=== PATIENT | female | born 1985 | race Caucasian/White ===

== ENCOUNTER 2020-10-10 03:51 | Outpatient (CLI) | payer OTHER ==
[2020-10-10] VITALS (33 sets, daily range): BP systolic 84–125; BP diastolic 50–82
[~2020-10-10] VITALS: Ht 170.2 cm; Wt 90.5 kg
[2020-10-10] MEDS: LR 1,000 ML IV SCH ×2 (04:40→16:35)
[2020-10-10] MEDS: MAG Sulf (OBGYN) 20GM/500ML 20,000 MG in IV 1 EA IV SCH ×3 (04:40→23:52)
[2020-10-10 05:15] LABS: HEMATOCRIT 36.5 % (36.0-47.0); HEMOGLOBIN 12.2 g/dl (12.0-15.5); MEAN CORPUSCULAR HEMOGLOBIN 29.7 pg (27.0-33.0); MEAN CORPUSCULAR HGB CONC 33.4 g/dl (32.0-36.5); MEAN CORPUSCULAR VOLUME 88.8 fl (80.0-96.0); PLATELET COUNT, AUTOMATED 141 10^3/uL (150-450); RED BLOOD COUNT 4.11 10^6/uL (4.00-5.40); WHITE BLOOD COUNT 9.3 10^3/uL (4.0-10.0)
[2020-10-10] MEDS ORDERED: BETAMETHASONE SOLUSPAN 6MG/ML 5ML VIAL (J0702 PER 3MG) IM ONE ×2 (05:15→12:28)
[2020-10-10] MEDS ORDERED: ZOFR4TAB16 PO (06:23)
[2020-10-10] MEDS ORDERED: PRENTAB9 PO (06:23)
[2020-10-10] MEDS ORDERED: ceFAZolin 2 GM/D5W 50 ML IV BAG (J0690 PER 500MG) As Ordered ONE (06:35)
--- NOTE | 2020-10-10 06:37 | REPVR ---
PROCEDURE INFORMATION: Exam: US After First Trimester, Transabdominal Exam date and time: 10/10/2020 5:36 AM Age: 34 years old Clinical indication: Lmp or gestational age (in weeks): 33w 3d; Other: R/O apruption; ; Additional info: Rule out abruption, gem, efw TECHNIQUE: Imaging protocol: Real-time transabdominal obstetrical ultrasound of the maternal pelvis and a second or third trimester with image documentation. COMPARISON: No relevant prior studies available. FINDINGS: Gestation: Single live intrauterine is seen. motion with identified. heart rate: heart rate is detected at 133 beats per minutes. presentation: Vertex presentation is noted. Placenta: Anterior grade 2 placenta is noted with no evidence of placenta previa or abruption. Amniotic fluid: Amniotic fluid is normal for gestational age. Amniotic fluid index: The amniotic fluid index is within normal limits measuring 16.2 centimetres. ANATOMY: kidneys: Limited evaluation of the kidneys appear grossly unremarkable. stomach: Limited evaluation of the stomach appear unremarkable. urinary bladder: Limited evaluation of the urinary bladder appear unremarkable. BIOMETRY: The biparietal diameter measures 8.99 cm corresponding to 36 weeks and 3 days gestation (more than 98 percentile). The head circumference measures 32.6 cm corresponding to 37 weeks gestation (94 percentile). The abdominal circumference measures 31.88 cm corresponding to 35 weeks and 6 days gestation (98 percentile). The femur length measures 6.83 cm corresponding to 35 weeks and 1 days gestation (84 percentile). Gestational age (AUA): 36 weeks and 1 days gestation. Estimated due date (AUA): November 06, 2020. Estimated weight: The estimated weight is 2772 g. Estimated weight percentile: 97 percentile. MATERNAL ANATOMY: Uterus: Not evaluated on this exam. Cervix: The cervix is normal length measuring 4.3 centimetres. The endocervical canal is closed. Right adnexa: Ovary is obscured by overlying bowel gas. Left adnexa: Ovary is obscured by overlying bowel gas. IMPRESSION: Single live IUP corresponding to 36 weeks and 1 days gestation with vertex presentation and anterior placenta with no gross sonographic evidence of abnormality and no evidence of placental abruption. Electronically signed by: Genaro Davidson On 10/10/2020 06:37:42 AM
[2020-10-10] MEDS ORDERED: OXYTOCIN 30 UNITS IN 0.9% NaCl 500ML IV BAG (J2590) As Ordered ONE (06:48)
[2020-10-10] MEDS ORDERED: KETOROLAC 60MG 2ML VIAL As Ordered ONE (06:48)
[2020-10-10] MEDS ORDERED: ONDANSETRON 4MG/2ML VIAL As Ordered ONE (06:48)
[2020-10-10] MEDS ORDERED: dexameTHASONE 4 MG/ML 1ML VIAL (J1100 PER 1MG) As Ordered ONE (06:48)
[2020-10-10] MEDS ORDERED: SUCCINYLCHOLINE 100 MG/5 ML SYRINGE (J0330) As Ordered ONE (06:57)
[2020-10-10] MEDS ORDERED: propofoL 200 MG/20 ML VIAL As Ordered ONE (06:57)
[2020-10-10] MEDS ORDERED: MORPHINE PRES-FREE INJ 10 MG/10 ML VIAL (J2274) As Ordered ONE (07:00)
[2020-10-10] MEDS ORDERED: BUTORPHANOL 2 MG/ML INJ (J0595) IV ONE (07:20)
[2020-10-10] MEDS ORDERED: PROMETHAZINE INJ 25 MG/ML VIAL (J2550) IV ONE (07:20)
[2020-10-10 08:59] LABS: HEMATOCRIT 37.1 % (36.0-47.0); HEMOGLOBIN 12.3 g/dl (12.0-15.5); MEAN CORPUSCULAR HEMOGLOBIN 29.7 pg (27.0-33.0); MEAN CORPUSCULAR HGB CONC 33.2 g/dl (32.0-36.5); MEAN CORPUSCULAR VOLUME 89.6 fl (80.0-96.0); PLATELET COUNT, AUTOMATED 151 10^3/uL (150-450); RED BLOOD COUNT 4.14 10^6/uL (4.00-5.40); WHITE BLOOD COUNT 9.4 10^3/uL (4.0-10.0)
[2020-10-10 09:18] LABS: ALBUMIN 2.9 GM/DL (3.2-5.2); ALT/SGPT 29 U/L (12-78); BILIRUBIN,TOTAL 0.4 MG/DL (0.2-1.0); BLOOD UREA NITROGEN 8 MG/DL (7-18); CALCIUM LEVEL 7.8 MG/DL (8.5-10.1); CARBON DIOXIDE LEVEL 22 MEQ/L (21-32); CHLORIDE LEVEL 109 MEQ/L (98-107); CREATININE FOR GFR 0.38 MG/DL (0.55-1.30); GLOMERULAR FILTRATION RATE > 60.0 (>60); GLUCOSE, FASTING 106 MG/DL (70-100); LDH LACTATE DEHYDROGENASE 158 U/L (84-246); POTASSIUM SERUM 3.8 MEQ/L (3.5-5.1); SODIUM LEVEL 137 MEQ/L (136-145); TOTAL PROTEIN 6.7 GM/DL (6.4-8.2)
[2020-10-10 09:33] LABS: INR 0.92; PROTHROMBIN TIME 12.6 SECONDS (12.5-14.3)
[2020-10-10 09:34] LABS: PARTIAL THROMBOPLASTIN TIME 24.3 SECONDS (24.2-38.5)
--- NOTE | 2020-10-10 11:05 | IPNPDOC ---
Obstetrical Progress Note Date of Service Oct 10, 2020 Subjective 34yo at 33+2 weeks, dated by LMP c/w first TM US (EDC: 11/26/20), who was transferred from [facility] out of concern for placental abruption, PTL. She presented with acute exacerbation/onset of lower abdominal pain / uterine pain, contractions. She has had no VB/spotting or LOF. +FM. She received an corticosteroid dose at 0028, was given Nifedipine for tocolysis and then placed on Magnesium Sulfate. An fFN was negative, and labs revealed no significant abnormality. Cervical exam revealed no evidence of advanced dilation. PMH: depression/anxiety, asthma, celiac disease SH: Appendectomy, cholecystectomy, D&C, EGD Meds: PNV, Ventolin HFA, Flovent HFA, Zofran All: acetaminophen? OBHx: G1, 2007: 36 weeks (baby w/ gastroschisis). G2, SAB. G3, 2010: 38 weeks . G4, EAB. G5, 2012: 38 weeks (baby w/ hypospadia). NETWORK ENGINEERING ADVISOR: h/o CT (treated), no other STI. Famhx: PGF colon CA. course: 1. Multiple triage / L&D visits (many for PTL concerns); received course of BMTZ at __ weeks O: Normotensive, mild Tachycardia 100-120bpm; O2 [id number]% on room air. Gen: A&Ox4 Heart: RRR no m/g/r Lungs: CTA b/l no w/c/r/r Abd: uterine tenderness/firm. no guarding or rebound tenderness, nondistended. Ext: no c/c/e SVE: 1cm, 25% effacement, -3 station, no bloody show. No abnormal discharge or foul odor. EFM: Cat I, reactive, normal baseline, moderate variability (periods of minimal variability), no decels. [place]: no decipherable labor contraction pattern; uterine irritability?. +artifact (due to pt movement/shifting positions) Labs: see below [facility] (no acute / abnormal findings) A/P: 34yo at 33+1 weeks. +abdominal pain, but no clear/compelling clinical evidence of acute placental abruption. Reassuring status. -IV pain control -cEFM/[place] -Repeat labs as indicated -Second dose of BMTZ at 1230 today -Continue with close observation. Omid Ro DO Objective Vital Signs Date Time Temp Pulse Resp B/P (MAP) Pulse Ox O2 Delivery O2 Flow Rate FiO2 10/10/20 09:07 114 110/58 (75) 10/10/20 08:38 126 121/73 (89) 10/10/20 08:37 129 10/10/20 08:22 134 10/10/20 08:07 130 106/69 (81) 10/10/20 07:36 126 102/64 (77) 10/10/20 07:33 18 10/10/20 06:06 98.2 93 20 119/82 (94) 10/10/20 03:58 97.8 85 20 115/72 (86) Laboratory Tests 10/10/20 04:23: Hepatitis B Surface Antigen NEGATIVEL 10/10/20 04:28: White Blood Count 9.3, Red Blood Count 4.11, Hemoglobin 12.2, Hematocrit 36.5, Mean Corpuscular Volume 88.8, Mean Corpuscular Hemoglobin 29.7, Mean Corpuscular Hemoglobin Concent 33.4, Red Cell Distribution Width 13.7, Platelet Count 141L, Nucleated Red Blood Cells % (auto) 0.0, Magnesium Level 2.0, Syphilis Serology [Pending] 10/10/20 08:00: Serology Scanned Report Hepatitis B Testing 10/10/20 08:40: White Blood Count 9.4, Red Blood Count 4.14, Hemoglobin 12.3, Hematocrit 37.1, Mean Corpuscular Volume 89.6, Mean Corpuscular Hemoglobin 29.7, Mean Corpuscular Hemoglobin Concent 33.2, Red Cell Distribution Width 13.7, Platelet Count 151, Nucleated Red Blood Cells % (auto) 0.0, Prothrombin Time 12.6, Prothromb Time International Ratio 0.92, Activated Partial Thromboplast Time 24.3L, Fibrinogen 441, Sodium Level 137, Potassium Level 3.8, Chloride Level 109H, Carbon Dioxide Level 22, Anion Gap 6L, Blood Urea Nitrogen 8, Creatinine 0.38L, Glomerular Filtration Rate > 60.0, Fasting Glucose 106H, Calcium Level 7.8L, Total Bilirubin 0.4, Aspartate Amino Transf (AST/SGOT) 19, Alanine Aminotransferase (ALT/SGPT) 29, Alkaline Phosphatase 103, Lactate Dehydrogenase 158, Total Protein 6.7, Albumin 2.9L, Albumin/Globulin Ratio 0.8L Current Medications Medications (Trade) Dose Ordered Sig/Trey Route PRN Reason Start Time Stop Time Status Last Admin Dose Admin Lactated Ringer's 1,000 ml @ 75 mls/hr [id number] IV 10/10/20 04:15 10/10/20 04:40 75 MLS/HR Magnesium Sulfate 42421 mg/IV Miscellaneous Supplies 500 ml @ 50 mls/hr Q10H IV 10/10/20 04:15 10/10/20 04:40 50 MLS/HR Laboratory Tests Test 10/10/20 04:28 10/10/20 08:40 Magnesium Level 2.0 MG/DL (1.8-2.4) Blood Urea Nitrogen 8 MG/DL (7-18) Creatinine 0.38 MG/DL (0.55-1.30) L Glomerular Filtration Rate > 60.0 (>60) Fasting Glucose 106 MG/DL (70-100) H Calcium Level 7.8 MG/DL (8.5-10.1) L Total Bilirubin 0.4 MG/DL (0.2-1.0) Aspartate Amino Transf (AST/SGOT) 19 U/L (7-37) Alanine Aminotransferase (ALT/SGPT) 29 U/L (12-78) Total Protein 6.7 GM/DL (6.4-8.2) Sodium Level 137 MEQ/L (136-145) Albumin 2.9 GM/DL (3.2-5.2) L Alkaline Phosphatase 103 U/L (45-117) Potassium Level 3.8 MEQ/L (3.5-5.1) Chloride Level 109 MEQ/L (98-107) H Carbon Dioxide Level 22 MEQ/L (21-32) Anion Gap 6 MEQ/L (8-16) L Laboratory Tests 10/10/20 04:28 10/10/20 08:40 Laboratory Tests 10/10/20 04:28 10/10/20 08:40 Vital Signs Date Time Temp Pulse Resp B/P (MAP) Pulse Ox O2 Delivery O2 Flow Rate FiO2 10/10/20 09:07 114 110/58 (75) 10/10/20 07:33 18 10/10/20 06:06 98.2 MIKE RO 21, 2021 11:05
[2020-10-10] MEDS ORDERED: MORPHINE 4 MG/ML 1ML VIAL/SYRINGE (J2270) IV ONE ×2 (13:50→19:25)
[2020-10-10] MEDS ORDERED: MORPHINE 4 MG/ML 1ML VIAL/SYRINGE (J2270) IV PRN (21:35)
[2020-10-10] MEDS ORDERED: diphenhydrAMINE 25MG CAP PO ONE (22:55)
[2020-10-11] VITALS (14 sets, daily range): BP systolic 77–102; BP diastolic 43–58
[2020-10-11 07:16] LABS: HEMATOCRIT 32.6 % (36.0-47.0); HEMOGLOBIN 10.7 g/dl (12.0-15.5); MEAN CORPUSCULAR HEMOGLOBIN 29.6 pg (27.0-33.0); MEAN CORPUSCULAR HGB CONC 32.8 g/dl (32.0-36.5); MEAN CORPUSCULAR VOLUME 90.1 fl (80.0-96.0); PLATELET COUNT, AUTOMATED 129 10^3/uL (150-450); RED BLOOD COUNT 3.62 10^6/uL (4.00-5.40); WHITE BLOOD COUNT 11.9 10^3/uL (4.0-10.0)
[2020-10-11 07:28] LABS: INR 0.96; PARTIAL THROMBOPLASTIN TIME 22.9 SECONDS (24.2-38.5)
[2020-10-11 07:39] LABS: ALBUMIN 2.4 GM/DL (3.2-5.2); ALT/SGPT 31 U/L (12-78); BILIRUBIN,TOTAL 0.3 MG/DL (0.2-1.0); BLOOD UREA NITROGEN 3 MG/DL (7-18); CALCIUM LEVEL 6.9 MG/DL (8.5-10.1); CARBON DIOXIDE LEVEL 22 MEQ/L (21-32); CHLORIDE LEVEL 107 MEQ/L (98-107); CREATININE FOR GFR 0.22 MG/DL (0.55-1.30); GLOMERULAR FILTRATION RATE > 60.0 (>60); GLUCOSE, FASTING 96 MG/DL (70-100); POTASSIUM SERUM 3.5 MEQ/L (3.5-5.1); SODIUM LEVEL 138 MEQ/L (136-145); TOTAL PROTEIN 5.1 GM/DL (6.4-8.2)
[2020-10-11] MEDS: LR 1,000 ML IV SCH (08:22)
--- NOTE | 2020-10-11 09:51 | HPE ---
HISTORY AND PHYSICAL DATE OF ADMISSION: 10/10/2020 HISTORY OF PRESENT ILLNESS: Indy is a 34-year-old female is 3, para 2-0-0-2, who was transferred here by an ambulance after being transferred from [facility] for labor. She was found to be 1 cm and dilating and she was sent here after receiving a bolus of magnesium sulfate, one dose of betamethasone. She had also received a dose of Procardia. She does have a history of prior contractions. Her fibronectin was negative. She is also found here to be shruti every minute to two with a questionable abruption. Her full record reviewed as well as report received from her transferring doc. The patient has a history of one at 36 weeks and another delivery at 37 weeks, first complicated by a fetus with gastroschisis. In the second , fetus had hypospadias. Her second was induced because of repeated contractions and feeling uncomfortable. Her full history reviewed. PAST MEDICAL HISTORY: Significant for anxiety, depression, celiac disease, anaphylactic reaction to Tylenol. She has a history of asthma and multiple meds. PAST SURGICAL HISTORY: She had a D&C for spontaneous AB and one elective termination. OBSTETRIC HISTORY: She is a 6, para 1-1-2-2. ALLERGIES: ACETAMINOPHEN, BEE VENOM. MEDICATIONS: 1. Albuterol. 2. Singulair. 3. She was receiving prednisone. 4. D-Vi-Marleen. PHYSICAL EXAMINATION: HEENT grossly within normal limits. The patient is in mild distress with complaints of severe contractions. Her abdomen is firm, appeared to be consistent with a possible abruption. Vaginal exam: Sterile speculum exam as well as a digital exam done, no evidence of bleeding. Her cervix is 1 cm thick and posterior. The bedside ultrasound shows no evidence of abruption. Fetus is approximately 6 lb, 6 oz. Normal appearing placenta. However, on clinical exam, she does appear to have clinical signs of abruption. Her uterus is firm and very little break in between contractions. Tracing remained a category 1 tracing at this point. LABORATORY DATA: Her repeat lab reviewed. H&H is 12/35. Her magnesium sulfate level is 2. ASSESSMENT: Intrauterine at 33 weeks gestation, status post first dose of steroid, being evaluated for possible labor. However, an abruption cannot be ruled out although ultrasound does not show any evidence of abruption. PLAN: We will continue to monitor this patient, continue her magnesium sulfate, ampicillin for GBS prophylaxis. The patient and her partner counseled extensively. Given the nature of her contractions and her clinical exam, it is my feeling that she is having abruption. We will monitor her for possible dilation. If for any reason the tracings change or the patient continues to be uncomfortable, we might have to do a stat section. The risks and benefits of the section discussed with the patient as well as need for intensive care admission for the baby.
--- NOTE | 2020-10-11 11:21 | IPNPDOC ---
Text Note Date of Service The patient was seen on 10/11/20. NOTE Subjective: Indy is a 34 year-old female who was transported from another facility via ambulance over their concern for a potential placental abruption. She was found to be stable, without bleeding, with normal abruption labs. After monitoring her, starting Mag on her and given a rescue dose of betamethasone she was found to have no change. She had no contractions on the EFM all night while she was sleeping. Objective: FHR: 120, moderate variability, positive accelerations, no decelerations. [place]: none General: Alert and oriented. No apparent distress. Respiratory: Regular rate without use of accessory muscles Abdomen: gravid, soft with no tenderness with palpation SCE: 1/thick, high, No bleeding with exam noted. No change in over 24+ hours. Assessment: IUP at 33.3 weeks gestation, not in labor, no abruption. Plan: After reviewing recent labs with Dr. Ro there was not noted to be any major changes that wasn't a result of hemodilution. Recommendation is to discharge from hospital. Reviewed findings with patient. Education done on kick count, labor signs, and danger signs to report. Discharged to home with her with precautions. VS,Fishbone, I+O VS, Fishbone, I+O Laboratory Tests 10/11/20 06:55 10/11/20 06:56 Vital Signs Date Time Temp Pulse Resp B/P (MAP) Pulse Ox O2 Delivery O2 Flow Rate FiO2 10/11/20 08:20 97.9 10/11/20 07:57 82 18 87/48 (61) 10/10/20 14:09 Room Air I&O- Last 24 Hours up to 6 AM 10/11/20 06:00 Intake Total 4743 ml Output Total 5950 ml Balance -1207 ml CARLOS AGUILAR CNM Oct 11, 2020 11:20
== END 2020-10-11 10:30 | disposition home or self-care (01) ==
LOC: M LDO 03:51 → UNDOADMIN 06:11 → M LDI 06:11 → UNDODISIN 10-11 10:30 → M LDO 10-11 10:30
PROVIDERS: ATTEND Obstetrics & Gynecology
DX: O26.893 Other specified pregnancy related conditions, third trimester (principal); R10.9 Unspecified abdominal pain; Z3A.33 33 weeks gestation of pregnancy
CPT/HCPCS: 36415; 59025; 76811; 76820; 80053; 83615; 83735; 85027; 85384; 85610; 85730; 86780; 86850; 86900; 86901; 87340; 96365; 96366; 96372; 96375; 96376; J0595; J0702; J2270; J2274; J3475